=== PATIENT | male | born 1965 | race African-American/Black ===

== ENCOUNTER 2021-11-27 16:03 | Outpatient (CLI) | payer BC ==
[~2021-11-27 16:03] MED LIST: AMOX500C85 PO; FLUT0.05 NAS; MEDROL DOSEPAK4 MG PO; NYSTATIN100000 MG PO; RANI150T78 PO; TRIM800T12 PO
== END 2021-11-27 21:10 | disposition home or self-care (01) ==
LOC: RAD 16:03
PROVIDERS: ATTEND Internal Medicine
DX: M54.41 Lumbago with sciatica, right side (principal)